=== PATIENT | female | born 2000 | race Caucasian/White ===

== ENCOUNTER 2022-08-30 13:32 | Emergency (ER) | payer OTHER, SELFPAY ==
[2022-08-30 13:49] VITALS: BP 124/86; PULSE 75; O2SAT 98
[2022-08-30 14:56] VITALS: BP 125/83; PULSE 62; RESP 18; TEMP 36.6; O2SAT 99; BMI 36.8
--- NOTE | 2022-08-30 14:57 | ED_ITS ---
HPI - Psych General Chief Complaint: Psychiatric Symptoms <Debbie Jurado MD - Last Filed: 08/30/22 15:03> Stated Complaint: Chest tightness <Debbie Jurado MD - Last Filed: 08/30/22 15:03> Time Seen by Provider: 08/30/22 15:16 <Debbie Jurado MD - Last Filed: 08/30/22 15:03> Source: patient and EMS <JOSE R Taylor - Last Filed: 08/30/22 17:51> Mode of arrival: EMS <JOSE R Taylor - Last Filed: 08/30/22 17:51> Limitations: no limitations <JOSE R Taylor - Last Filed: 08/30/22 17:51> History of Present Illness HPI Narrative: Patient is a 21 year old female with a PMHx of polycystic ovarian syndrome, anxiety and depression presents to the emergency department today with complains of chest tightness ongoing since last night. Patient states that she was recently diagnosed with Influenza and has been out of work for a week now due to fatigue, nasal congestion and cough. Patient reports that she has been more anxious than usual and had a panic attack a day ago. Patient reports seeing a therapist twice weekly for her anxiety and depression which has been helpful.Patient reports smoking marijuana frequently and her last marijuana use was a week ago, prior to onset of her flu like symptoms. ? Patient denies any antidepressant or antipsychotic medication use. Patient states that she has had suicidal ideations but has no plans of harming herself. She states that she is on metformin for her PCOS. Patient denies any previous hospitalizations, zapien llucinations, racing thoughts, alcohol use and feelings of worthlesness.? Patient denies any other complaints or concerns at this time. <JOSE R Taylor - Last Filed: 08/30/22 17:51> MD complaint: suicidal ideation, feels depressed and anxiety <JOSE R Taylor - Last Filed: 08/30/22 17:51> Onset (ago): day(s) <JOSE R Taylor - Last Filed: 08/30/22 17:51> Duration: intermittent <JOSE R Taylor - Last Filed: 08/30/22 17:51> History of same: Yes <JOSE R Taylor - Last Filed: 08/30/22 17:51> Relieving factors: therapy <JOSE R Taylor - Last Filed: 08/30/22 17:51> Exacerbating factors: none <JOSE R Taylor - Last Filed: 08/30/22 17:51> Associated symptoms: denies other symptoms <JOSE R Taylor - Last Filed: 08/30/22 17:51> Treatments prior to arrival: none <JOSE R Taylor - Last Filed: 08/30/22 17:51> Related Data Allergies/Adverse Reactions: Allergies Allergy/AdvReac Type Severity Reaction Status Date / Time No Known Allergies Allergy Verified 08/30/22 15:00 <Debbie Jurado MD - Last Filed: 08/30/22 15:03> Review of Systems Review of Systems: Constitutional : No Fever, No Chills ENT/Mouth : No Ear Pain, No Nasal Congestion, No sore throat Eyes: No Eye Pain, No Swelling, No Redness Cardiovascular : No Chest Pain, No SOB Respiratory : No Cough, No Sputum, No Dyspnea Gastrointestinal : No ingestions, No Nausea, No Vomiting, No Diarrhea, No Hematochezia, No Melena Genitourinary : No Dysuria, No Urinary Frequency, No Hematuria Musculoskeletal : No Myalgias Skin : No Skin Lesions, No rash Neuro : No Weakness, No Numbness, No Paresthesias, No Dizziness, No Headache Psych : + Anxiety, + Depression, + SI, No thoughts of self injury, No HI, No AVH, Heme/Lymph: No Lymphadenopathy Endocrine : No Polyuria, No Polydipsia <JOSE R Taylor - Last Filed: 08/30/22 17:51> Yes all other systems are reviewed and are negative <JOSE R Taylor - Last Filed: 08/30/22 17:51> PMFSH Past Medical History Attestation statement: The following information was validated with the patient. <JOSE R Taylor - Last Filed: 08/30/22 17:51> Source: old records reviewed and nursing notes reviewed <JOSE R Taylor - Last Filed: 08/30/22 17:51> Social History Social History: Social History Advance Directives: No Advance Directives Information Provided: No <Debbie Jurado MD - Last Filed: 08/30/22 15:03> Physical Exam Vital Signs: Vital Signs: Last Vital Signs Temp 97.8 F 08/30/22 14:56 Pulse 62 08/30/22 14:56 Resp 18 08/30/22 14:56 BP 125/83 08/30/22 14:56 Pulse Ox 99 08/30/22 14:56 O2 Del Method 08/30/22 14:56 BMI result Body Mass Index 36.8 <Debbie Jurado MD - Last Filed: 08/30/22 15:03> Vital Signs: Last Vital Signs Temp 97.8 F 08/30/22 14:56 Pulse 62 08/30/22 14:56 Resp 18 08/30/22 14:56 BP 125/83 08/30/22 14:56 Pulse Ox 99 08/30/22 14:56 O2 Del Method 08/30/22 14:56 BMI result Body Mass Index 36.8 vital signs have been reviewed as normal and appeared to be correct. Blood pressure normal. Heart rate normal. Respiration rate normal. Temperature normal. Oxygen saturation normal. <JOSE R Taylor - Last Filed: 08/30/22 17:51> Appearance: Alert. Oriented X3. No acute distress. Head: Normal external exam. Normocephalic. Atraumatic. No Reyes signs noted. No raccoon eyes noted Eyes: PERRLA. EOMI. Conjunctiva and sclera normal. Eyelids normal. ENT: EAC normal. TM's Normal. Pharynx normal. Uvula midline. Moist mucous membranes. No trismus noted. No drooling noted. No muffled voice noted. Neck: Normal inspection. Neck supple. FROM. No adenopathy. Thyroid Normal. No meningeal signs. No neck mass noted. CVS: Normal heart rate and rhythm. Heart sound normal. No murmurs noted. Pulses normal throughout. Respiratory: No respiratory distress. Painless inspiration. Breath sounds normal. No wheezes/rales/rhonchi noted. Chest nontender. No accessory muscle usage noted or decreased air movement noted. Abdomen: Soft and nontender. Bowel sounds normal in all 4 quadrants. No distention noted. No organomegaly noted. No visible injury noted. Back: No CVA tenderness. Full range of motion noted. Skin: Skin warm and dry. Normal skin color. Normal skin turgor. No rashes/lesions/lacerations noted. Extremities: No lower extremity edema. Extremities exhibit normal range of motion. Extremities nontender. Neuro: Oriented X 3. No motor deficit. No sensory deficit. Reflexes normal. CN's II-XII intact bilaterally? Psych: Appearance grossly normal, well-kept, mental status normal, speech and movement normal, speech clear, patient appears very sad and anxious along with depressed. Is cooperative. Normal thought process. Normal thought content. Normal good insight. Judgment good. <JOSE R Taylor - Last Filed: 08/30/22 17:51> Course Course Course Narrative: 21F recent diagnosis of Influenza A now presenting with panic attack, SI, not on medication and denies precipitating event that contributed to psychiatric events. Sees therapist at school. VS Reviewed GEN: NAD HEENT: NC/AT. EOMI/PERRLA, Ears wnl, throat wnl PULM: CTAB CVS: RRR, no murmurs ABD: NT/ND EXT: warm, pink, dry PSYCH: depressed affect Labs, SARS, Tox screen, BHN consult <Debbie Jurado MD - Last Filed: 08/30/22 15:03> Reevaluation(s) Reevaluation #1: Patient is a 21 year old female with a PMH of polycystic ovarian syndrome, anxiety and depression presents to the emergency department today with complains of chest tightness ongoing since last night. Patient also reports that she has been more anxious than usual and had a panic attack a day ago. Patient states that she has had suicidal ideations but has no plans of harming herself. Patient denies any previous hospitalizations, hallucinations, racing thoughts, alcohol use and feelings of worthlessness.? On physical exam patient was crying but very calm and co operative. Patient appeared sad and anxious. She was well-kept, mental status normal, speech and movement normal, speech clear.? Fair judgment and insight. The rest of physical exam revealed no abnormalities. Plan:? Labs, UA, urine , provide at 175 mg of Tylenol and crisis con sult re-evaluate. <JOSE R Taylor - Last Filed: 08/30/22 17:51> Time: 16:00 <JOSE R Taylor - Last Filed: 08/30/22 17:51> Reevaluation #2: Labs obtained and reviewed - all labs are within normal limits.? Patient negative for . Therefore at this time patient is placed in Physician observation because the patient needs more time to be evaluated by crisis.? Will continue to monitor. <JOSE R Taylor - Last Filed: 08/30/22 17:51> Time: 16:41 <JOSE R Taylor - Last Filed: 08/30/22 17:51> Reevaluation #3: - patient is reporting that she would like to just go home. Reports she is feeling better. She denies any thoughts of SI. She does not have any plan in place. She initially came here for chest tightness and then when she was in the waiting room she started feeling anxious and said that she would kill herself that is why she was brought into the ED therefore at this time patient will be discharged home. <JOSE R Taylor - Last Filed: 08/30/22 17:51> Time: 17:49 <JOSE R Taylor - Last Filed: 08/30/22 17:51> Medications Administered Generic Name Dose Route Start Last Admin Trade Name Freq PRN Reason Stop Dose Admin Lorazepam 1 mg 08/30/22 16:52 08/30/22 17:16 Lorazepam 1 Mg Tablet PO 1 mg Q6H PRN Administration anxiety Discontinued Medications Generic Name Dose Route Start Last Admin Trade Name Freq PRN Reason Stop Dose Admin Acetaminophen 975 mg 08/30/22 13:48 08/30/22 16:51 Acetaminophen 325 Mg Tablet PO 08/30/22 13:49 Not Given ONCE ONE <Debbie Jurado MD - Last Filed: 08/30/22 15:03> Medications Administered Generic Name Dose Route Start Last Admin Trade Name Freq PRN Reason Stop Dose Admin Lorazepam 1 mg 08/30/22 16:52 08/30/22 17:16 Lorazepam 1 Mg Tablet PO 1 mg Q6H PRN Administration anxiety Discontinued Medications Generic Name Dose Route Start Last Admin Trade Name Freq PRN Reason Stop Dose Admin Acetaminophen 975 mg 08/30/22 13:48 08/30/22 16:51 Acetaminophen 325 Mg Tablet PO 08/30/22 13:49 Not Given ONCE ONE <JOSE R Taylor - Last Filed: 08/30/22 17:51> Discharge Plan Discharge Clinical Impression: Influenza A, Depression, Acute anxiety <Debbie Jurado MD - Last Filed: 08/30/22 15:03> Patient Disposition: Home, Self-Care <Debbie Jurado MD - Last Filed: 08/30/22 15:03> Instructions: Anxiety (ED), Influenza (ED) <Debbie Jurado MD - Last Filed: 08/30/22 15:03> Referrals: Physician,None [Primary Care Provider] - (your pcp) <Debbie Jurado MD - Last Filed: 08/30/22 15:03> Interventions: [place]-Suicide Risk Severity Scale Last Done: 08/30/22 17:22 <Debbie Jurado MD - Last Filed: 08/30/22 15:03>
[2022-08-30 15:42] LABS: MANUAL DIFF FLAG NO
[2022-08-30 15:47] LABS: Basophils Percent Auto 0.2 % (0-2); Eosinophils Percent Auto 0.6 % (0-4); Hematocrit 40.8 % (37.0-47.0); Imm Gran Abs Auto 0.01 X10*3/uL (0.00-0.03); Imm Gran Pct Auto 0.2 % (0.0-0.4); Lymphocytes Absolute Auto 1.8 X10*3/uL (1.2-4.9); Lymphocytes Percent Auto 34.1 % (20-40); Mean Corpuscular HGB Conc 34.3 g/dl (31.0-35.0); Mean Corpuscular Hemoglobin 29.6 pg (27.0-33.0); Mean Corpuscular Volume 86.3 fL (80.0-98.0); Mean Platelet Volume 10.5 fL (9.4-12.3); Monocytes Absolute Auto 0.4 X10*3/uL (0.1-1.2); Monocytes Percent Auto 8.2 % (2-11); Neutrophils Percent Auto 56.7 % (45-73); Platelet Count 287 X10*3/uL (160-400); Red Blood Count 4.73 X10*6/uL (4.20-5.50); White Blood Count 5.3 X10*3/uL (4.8-10.8)
--- NOTE | 2022-08-30 15:55 | ED.PSYCH ---
HPI - Psych General Chief Complaint: Psychiatric Symptoms Stated Complaint: Chest tightness Time Seen by Provider: 08/30/22 15:16 Source: patient Mode of arrival: ambulatory Limitations: no limitations History of Present Illness HPI Narrative: Patient is a 21 year old female with a PMH of polycystic ovarian syndrome, anxiety and depression presents to the emergency department today with complains of chest tightness ongoing since last night. Patient states that she was recently diagnosed with Influenza and has been out of work for a week now due to fatigue, nasal congestion and cough. Patient reports that she has been more anxious than usual and had a panic attack a day ago. Patient reports seeing a therapist twice weekly for her anxiety and depression which has been helpful.Patient reports smoking marijuana frequently and her last marijuana use was a week ago, prior to onset of her flu like symptoms. Patient denies any antidepressant or antipsychotic medication use. Patient states that she has had suicidal ideations but has no plans of harming herself. She states that she is on metformin for her PCOS. Patient denies any previous hospitalizations, hallucinations, racing thoughts, alcohol use and feelings of worthlesness. Patient denies any other complaints or concerns at this time. MD complaint: suicidal ideation, feels depressed and anxiety Onset (ago): day(s) (panic attack a day ago) Duration: intermittent History of same: Yes Relieving factors: therapy Exacerbating factors: none Associated psychiatric symptoms: depression and suicidal ideation Associated symptoms: denies other symptoms Treatments prior to arrival: none Related Data Allergies Allergy/AdvReac Type Severity Reaction Status Date / Time No Known Allergies Allergy Verified 08/30/22 15:00 Review of Systems Review of Systems: Constitutional : No Fever, No Chills ENT/Mouth : No Ear Pain, No Nasal Congestion, No sore throat Eyes: No Eye Pain, No Swelling, No Redness Cardiovascular : No Chest Pain, No SOB Respiratory : No Cough, No Sputum, No Dyspnea Gastrointestinal : No ingestions, No Nausea, No Vomiting, No Diarrhea, No Hematochezia, No Melena Genitourinary : No Dysuria, No Urinary Frequency, No Hematuria Musculoskeletal : No Myalgias Skin : No Skin Lesions, No rash Neuro : No Weakness, No Numbness, No Paresthesias, No Dizziness, No Headache Psych : + Anxiety, + Depression, + SI, No thoughts of self injury, No HI, No AVH, Heme/Lymph: No Lymphadenopathy Endocrine : No Polyuria, No Polydipsia Yes all other systems are reviewed and are negative [facility] Social History Social History Advance Directives: No Advance Directives Information Provided: No Physical Exam Vital Signs: Vital Signs: Last Vital Signs Temp 97.8 F 08/30/22 14:56 Pulse 62 08/30/22 14:56 Resp 18 08/30/22 14:56 BP 125/83 08/30/22 14:56 Pulse Ox 99 08/30/22 14:56 O2 Del Method 08/30/22 14:56 BMI result Body Mass Index 36.8 vital signs have been reviewed as normal and appeared to be correct. Blood pressure normal. Heart rate normal. Respiration rate normal. Temperature normal. Oxygen saturation normal. Appearance: Alert. Oriented X3. No acute distress. Head: Normal external exam. Normocephalic. Atraumatic. Eyes: PERRLA. EOMI. Conjunctiva and sclera normal. Eyelids normal. ENT: EAC normal. TM's Normal. Pharynx normal. Uvula midline. Moist mucous membranes. No trismus noted. No drooling noted. No muffled voice noted. Neck: Normal inspection. Neck supple. FROM. Thyroid Normal. No meningeal signs. No neck mass noted. CVS: Normal heart rate and rhythm. Heart sound normal. No murmurs noted. Respiratory: No respiratory distress. Painless inspiration. Breath sounds normal. No wheezes/rales/rhonchi noted. Chest nontender. No accessory muscle usage noted or decreased air movement noted. Abdomen: Soft and nontender. Bowel sounds normal in all 4 quadrants. No distention noted. No organomegaly noted. No visible injury noted. Back: Full range of motion noted. Skin: Skin warm and dry. Normal skin color. Normal skin turgor. No rashes/lesions/lacerations noted. Extremities: No lower extremity edema. Extremities exhibit normal range of motion. Extremities nontender. Neuro: Oriented X 3. No motor deficit. No sensory deficit. Psych: Patient appears sad and anxious, crying during the exambut is calm and co operative. . Patient is well-kept, mental status normal, speech and movement normal, speech clear. Fair judgment and insight. Psych: Appearance: grossly normal and well kempt Mental Status: mental status grossly normal Speech and movement: Normal speech and movement present and Clear speech present Affect: Sad affect present Attitude: cooperative Thought process: Normal thought process present Thought content: Suicidality present Insight: Fair insight present (Psych) Judgement: Fair judgement present (Psych) Course Course Course Narrative: 16pm - Patient is a 21 year old female with a PMH of polycystic ovarian syndrome, anxiety and depression presents to the emergency department today with complains of chest tightness ongoing since last night. Patient also reports that she has been more anxious than usual and had a panic attack a day ago. Patient states that she has had suicidal ideations but has no plans of harming herself. Patient denies any previous hospitalizations, hallucinations, racing thoughts, alcohol use and feelings of worthlessness. On physical exam patient was crying but very calm and co operative. Patient appeared sad and anxious. She was well-kept, mental status normal, speech and movement normal, speech clear. Fair judgment and insight. The rest of physical exam revealed no abnormalities. Plan: Labs, UA, urine , provide at 175 mg of Tylenol and crisis consult re-evaluate. Reevaluation(s) Reevaluation #1: Labs obtained and reviewed - all labs are within normal limits. Patient negative for . Therefore at this time patient is placed in Physician observation because the patient needs more time to be evaluated by crisis. Will continue to monitor. Time: 16:34 Discharge Plan Discharge Clinical Impression: Suicidal ideation, Influenza A
[2022-08-30 16:07] LABS: Alanine Aminotransferase 24 U/L (0-31); Albumin Level 4.4 g/dL (3.5-5.0); Alkaline Phosphatase 52 U/L (39-117); Anion Gap 15 (12-20); Aspartate Amino Transferase 21 U/L (5-31); Bilirubin Total 0.4 mg/dL (0.0-1.0); Blood Urea Nitrogen 11 mg/dL (9-16); Calcium 9.1 mg/dL (8.4-10.2); Carbon Dioxide 24 mmol/L (22-29); Chloride 108 mmol/L (96-108); Creatinine Clr Calc Pharmacy 143.3; Estimated Glomerular Filt Rate > 60; Glucose Random 110 mg/dL (60-115); Potassium 3.8 mmol/L (3.3-5.1); Sodium 143 mmol/L (135-145); Total Protein 7.3 g/dL (6.5-8.0)
[2022-08-30 16:27] LABS: UPreg QC Valid YES; Urine Pregnancy NEGATIVE (NEGATIVE)
[2022-08-30] MEDS: LORazepam 1 MG TABLET PO (17:16)
--- NOTE | 2022-08-30 17:54 | MHC.CARE ---
Care Team met with pt in ED 22 H. PT reported grievances and declines to meet with this content writer. Care Team communicated with Cecilia ODELL.
[2022-08-30 18:44] LABS: Influenza A PCR POSITIVE (Negative); Influenza B PCR NEGATIVE (Negative); Resp Syncy Virus RNA Qual PCR NEGATIVE (Negative); SARS COV2 PCR INHOUSE NEGATIVE (Negative)
== END 2022-08-30 18:17 | disposition home or self-care (01) ==
PROVIDERS: Student in an Organized Health Care Education/Training Program; Emergency Provider Emergency Medicine
DX: J11.1 Influenza due to unidentified influenza virus with other respiratory manifestations (principal); F41.9 Anxiety disorder, unspecified; F32.A Depression, unspecified
CPT/HCPCS: 0241U; 36415; 80053; 81025; 85025; 99284

== ENCOUNTER 2023-04-22 12:28 | Emergency (ER) | payer BC, SELFPAY ==
--- NOTE | ~2023-04-22 | XR_ITS ---
EXAMINATION: XR CHEST CLINICAL INFORMATION: Cough and fever COMPARISON: None available. TECHNIQUE: 2 views of the chest were obtained. FINDINGS: No significant abnormality is noted involving the heart, lungs, mediastinum, bony thorax or soft tissues. XR/XR chest 2V IMPRESSION: Unremarkable examination.
--- NOTE | 2023-04-22 12:44 | ED_ITS ---
HPI - General Adult General Chief complaint: Upper Respiratory Symptoms Stated complaint: Vomiting X 3 Days Time Seen by Provider: 04/22/23 12:50 Source: patient Mode of arrival: ambulatory Limitations: no limitations History of Present Illness HPI narrative: Patient is a 22 year old assigned female at with no reported medical history presenting to the emergency department today with a cough. Patient states that over the last 3 days she has had a cough that is not getting better. Patient denies any dizziness, lightheadedness, abdominal pain, nausea, vomiting, fever, chills, blurry vision, double vision, loss of vision, chest pain, difficulty breathing, shortness of breath, back pain, night sweats, pain with urination, increased urinary frequency, increased urinary urgency, blood in her urine or stool, syncope or a near syncopal episode, recent trauma or falls, bowel incontinence, bladder incontinence, bowel retention, bladder retention, or any other complaints at this time. Onset (ago): day(s) (3) Severity: mild Severity scale (1-10): 3 Relieving factors: none Exacerbating factors: none Associated symptoms: cough Treatments prior to arrival: none Related Data Previous Rx's Medication Instructions Recorded benzonatate 100 mg capsule 100 mg PO BID PRN cough 7 days #14 04/22/23 caps Allergies Allergy/AdvReac Type Severity Reaction Status Date / Time No Known Allergies Allergy Verified 08/30/22 15:00 Review of Systems Constitutional: Constitutional: Reports no additional constitutional complaints, Denies chills, Denies fever(s) and Denies night sweats Eyes: Eyes: Reports no additional eye complaints, Denies blurry vision, Denies change in vision, Denies diplopia, Denies eye discharge, Denies loss of vision and Denies eye pain ENT: Denies dizziness Cardiovascular: Cardiovascular: Reports no additional cardiovascular complaints, Denies chest pain, Denies lightheadedness, Denies Loss of Consciousness and Denies dyspnea Respiratory: Respiratory: Reports no additional respiratory complaints, Reports cough and Denies dyspnea Gastrointestinal: Gastrointestinal: Reports no additional gastrointestinal complaints, Denies abdominal pain, Denies melena, Denies hematochezia, Denies change in bowel habits and Denies change in stool character Genitourinary: Genitourinary: Denies hematuria, Denies urinary frequency, D enies dysuria, Denies urinary incontinence, Denies urinary hesitancy and Denies urinary urgency Musculoskeletal: Musculoskeletal: Reports no additional musculoskeletal complaints, Denies numbness and Denies tingling Neurologic: Denies dizziness, Denies loss of vision, Denies numbness and Denies tingling Psychiatric: Psychiatric: Reports no additional psychiatric complaints Endocrine: Endocrine: Reports no additional endocrine complaints Hematologic/Lymphatic: Hematologic/Lymphatic: Reports no additional hematologic/lymphatic complaints Allergic/Immunologic: Allergic/Immunologic: Reports no additional allergic/immunologic complaints PMFSH Past Medical History Attestation statement: The following information was validated with the patient. Source: old records reviewed and nursing notes reviewed Social History Social History Advance Directives: No Advance Directives Information Provided: No Physical Exam ED Vital Signs: Vital Signs - 24 hr 04/22/23 12:45 Temperature 97.6 F Pulse Rate 75 Respiratory Rate 18 Blood Pressure 132/80 Pulse Oximetry 97 Oxygen Delivery Method Room Air BMI result Body Mass Index 36.0 Const General: cooperative, no acute distress, alert and awake Nutritional Appearance: well nourished Orientation/consciousness: patient oriented x3 Limitations: no limitations HENMT Head: Yes normal to inspection and Yes atraumatic Ears: hearing grossly normal bilaterally and external ears normal General nose exam: Normal external nose present, no nasal discharge noted and no epistaxis Face and sinus: Yes normal facial exam, No abrasion and No laceration Mouth: Normal oral and palatal mucosa present, no drooling and no muffled voice Eyes General: appearance normal, both eyes and all related structures Periorbital: periorbital findings normal Eyelids: Yes eyelids normal Conjunctivae: conjunctivae normal Pupils: Equal, round and reactive pupils present EOM: EOMs intact bilaterally Neck Neck: Yes normal visual inspection, Yes full ROM and Yes no lymphadenopathy Chest Chest palpation & inspection: normal inspection of the chest Resp Effort & Inspection: normal respiratory effort and able to speak in complete sentences Auscultation: clear to auscultation bilaterally Cardio Rate: regular rate Rhythm: regular rhythm GI Inspection: Yes normal to inspection Neuro General: patient oriented x3 and moves all extremities Cranial nerves: Yes Equal, round and reactive pupils present Cognition (Neuro): normal cognition Motor exam (neuro): 5/5 motor strength present throughout Sensory Exam: Normal double simultaneous stimulation for sensation Coordination: [id number] test normal Extrem General: Yes normal to inspection, Yes full ROM and Yes capillary refill normal Psych Appearance: grossly normal Mental Status: mental status grossly normal Affect: normal affect Attitude: cooperative Thought process: Normal thought process present Thought content: Normal thought content present Insight: Good insight present (Psych) Course Course Course Narrative: This is a rapid medical exam: Additional HPI, ROS, PE not included below will be deferred to primary provider. Patient is a 22-year-old female with history of PCOS presenting to the emergency department with complaint of cough for 3 days, reports coughing episodes so severe they are causing her to vomit. Reports fever last night. Plan: flu, covid, cxr Medical Decision Making Medical Decision Making [facility] Narrative: Patient is a 22 year old assigned female at with no reported medical history presenting to the emergency department today with a cough. Patient's physical exam was unremarkable. Patient's COVID-19 and influenza tests were negative. Patient's chest x-ray showed no acute process. I explained my physical exam findings as well as all test results to the patient. I answered all questions asked by the patient. I stressed the importance of the patient taking her medication as prescribed. I stressed the importance of the patient following up with her primary care provider. I stressed the importance of the patient returning to the emergency department immediately if her symptoms were to worsen or if she were to develop any dizziness, shortness of breath, difficulty breathing, chest pain, blurry vision, loss of vision, nausea, vomiting, abdominal pain, fever, chills, back pain, or any other complaints. Patient verbalized agreement and understanding with this treatment plan and discharge. Differential Diagnosis Differential Diagnoses: The differential diagnosis associated with the presentation includes Cough Viral illness URI Influenza Pneumonia COVID-19 Admission/Observation Consideration of admission/observation: Escalation of care including admission /observation considered Patient would have been admitted to the hospital had her work up had any findings where hospital admission was appropriate and her clinical presentation warranted hospital admission. Lab Data [facility] Lab Attestation statement: I reviewed the patient's lab results. My interpretation of these studies and their corresponding values is that they are grossly normal. Labs: Lab Results 04/22/23 04/22/23 Range/Units 13:22 13:22 COVID-19 (CRISTOFER) Negative (Negative) COVID-19 Clin Com See Note Influenza Type A (BETINA) Negative (Negative) Influenza Type B (BETINA) Negative (Negative) Influenza A & B Note See Note Independent Interpretation I performed an independent interpretation of an: Plain X-Ray Interpretation: My interpretation is in agreement with the radiologist's impression of this imaging study. EXAMINATION: XR CHEST CLINICAL INFORMATION: Cough and fever COMPARISON: None available. TECHNIQUE: 2 views of the chest were obtained. FINDINGS: No significant abnormality is noted involving the heart, lungs, mediastinum, bony thorax or soft tissues. XR/XR chest 2V IMPRESSION: Unremarkable examination. Dictated By: Debbie Ortega MD Signed By: Electronically signed by Debbie Ortega MD 04/22/23 3226 Radiology Impression Discussion of test interpretation with radiology: I have reviewed the radiologist's reading. Prescription Management I considered prescription management with: Other (patient prescribed a cough suppressant) Discharge Plan Discharge Clinical Impression: Upper respiratory infection Patient Disposition: Home, Self-Care Instructions: Viral Syndrome (ED) Additional Instructions: Follow up with your primary care provider. Return to the emergency department immediately if your symptoms worsen or if you develop any dizziness, shortness of breath, difficulty breathing, chest pain, blurry vision, loss of vision, nausea, vomiting, abdominal pain, fever, chills, back pain, or any other complaints. Prescriptions: New benzonatate 100 mg capsule 100 mg PO BID PRN (Reason: cough) 7 Days Qty: 14 0RF Referrals: [facility] [place] [facility] [place]] (Call to establish and follow up with a primary care provider. If you already have a primary care provider, please follow up with them.) [facility] [place] [facility] [[facility]] (Call to establish and follow up with a primary care provider. If you already have a primary care provider, please follow up with them.) [facility] [place] [facility] [[facility]] (Call to establish and follow up with a primary care provider. If you already have a primary care provider, please follow up with them.) Stand Alone Forms: Work/School Release Interventions: ED Discharge Assessment Last Done: 04/22/23 14:32 Discharge Date/Time: 04/22/23 14:32 Print Language: Turkmen
[2023-04-22 12:45] VITALS: BP 132/80; PULSE 75; RESP 18; TEMP 36.4; O2SAT 97; BMI 36.0
[2023-04-22 13:53] LABS: IDNOW Serial# BCCEAD1C; Influenza A Negative (Negative); Influenza B2 Negative (Negative)
[2023-04-22 14:05] LABS: COVID-19 Test Negative (Negative); IDNOW Serial# 08D9AD1C
== END 2023-04-22 14:32 | disposition home or self-care (01) ==
PROVIDERS: Registered Nurse Emergency; Emergency Provider Emergency Medicine Emergency Medical Services
DX: J06.9 Acute upper respiratory infection, unspecified (principal); Z20.822 Contact with and (suspected) exposure to COVID-19; Z20.828 Contact with and (suspected) exposure to other viral communicable diseases
CPT/HCPCS: 71046; 87502; 87635; 99282; 99283

== ENCOUNTER 2023-05-18 08:46 | Emergency (ER) | payer BC, SELFPAY ==
--- NOTE | ~2023-05-18 | US_ITS ---
EXAMINATION: US PELVIS CLINICAL INFORMATION: Lower abdominal pain. COMPARISON: None available. TECHNIQUE: Ultrasound of the pelvis is performed using both transabdominal and transvaginal transducers along with Doppler. Transvaginal imaging is performed due to inadequate visualization transabdominally. FINDINGS: Uterus: The uterus is anteverted and measures 7.6 x 4.0 x 5.9 cm. No myometrial abnormality. The double wall endometrial thickness is 1.4 cm. A tiny hypoechoic focus near the fundus measures 0.2 x 0.2 x 0.2 cm. Color Doppler showed no abnormal vascular flow. The cervix is closed and measures approximately 3.0 cm. Adnexa: Both ovaries are visualized. There is normal color flow to the adnexa. There is no ovarian torsion. There is no pelvic ascites or fluid collection. Right ovary measures 3.5 x 1.6 x 1.8 cm. 5.3 mL volume. Left ovary measures 3.3 x 1.7 x 1.8 cm. 5.5 mL volume US/US pelvic ovarian doppler IMPRESSION: 1. Mild thickening of the endometrium with tiny 0.2 cm hypoechoic focus near the fundus. This is nonspecific. The appearance is benign. Intrauterine gestation cannot be completely excluded. Monitoring of beta-hCG levels and short-term imaging follow-up is recommended as clinically indicated. No other significant abnormality.
--- NOTE | ~2023-05-18 | US_ITS ---
EXAMINATION: US PELVIS CLINICAL INFORMATION: Lower abdominal pain. COMPARISON: None available. TECHNIQUE: Ultrasound of the pelvis is performed using both transabdominal and transvaginal transducers along with Doppler. Transvaginal imaging is performed due to inadequate visualization transabdominally. FINDINGS: Uterus: The uterus is anteverted and measures 7.6 x 4.0 x 5.9 cm. No myometrial abnormality. The double wall endometrial thickness is 1.4 cm. A tiny hypoechoic focus near the fundus measures 0.2 x 0.2 x 0.2 cm. Color Doppler showed no abnormal vascular flow. The cervix is closed and measures approximately 3.0 cm. Adnexa: Both ovaries are visualized. There is normal color flow to the adnexa. There is no ovarian torsion. There is no pelvic ascites or fluid collection. Right ovary measures 3.5 x 1.6 x 1.8 cm. 5.3 mL volume. Left ovary measures 3.3 x 1.7 x 1.8 cm. 5.5 mL volume US/US pelvic and transvaginal IMPRESSION: 1. Mild thickening of the endometrium with tiny 0.2 cm hypoechoic focus near the fundus. This is nonspecific. The appearance is benign. Intrauterine gestation cannot be completely excluded. Monitoring of beta-hCG levels and short-term imaging follow-up is recommended as clinically indicated. No other significant abnormality.
[2023-05-18 08:48] VITALS: BP 120/76; PULSE 93; RESP 17; TEMP 36.6; O2SAT 98; BMI 35.9
--- NOTE | 2023-05-18 09:53 | ED.ABDPAIN ---
HPI - Abdominal Pain General Chief Complaint: Abdominal Pain Stated Complaint: abdominal pain Time Seen by Provider: 05/18/23 09:39 Source: patient Mode of arrival: ambulatory Limitations: no limitations History of Present Illness HPI narrative: Patient is a 22 year old female with a history of PCOS presenting with abdominal pain/ cramping that started yesterday. She explains that this abdominal pain started suddenly yesterday morning and has continued since then. She vomited once yesterday morning but has not vomited since, just feels nauseous. She describes the pain as sharp and cramping across her lower abdomen and rates the pain an 8/10 at times other times shes pain free. She states pain is the same bilaterally. Last bowel movement was yesterday. Last menstrual period was one month ago on the , patient denies risk of but sexually active and not on birthcontrol. Denies headache, dizziness, chest pain, shortness of breath, nausea, vomiting, changes in bowel or bladder habits, fevers,chills. Patient denies sick contacts. Denies STD exposure or concerns Related Data Previous Rx's Medication Instructions Recorded benzonatate 100 mg capsule 100 mg PO BID PRN cough 7 days #14 04/22/23 caps acetaminophen 325 mg capsule 325 mg PO QID PRN pain #30 caps 05/18/23 (Tylenol) cephalexin 500 mg tablet 500 mg PO Q6H 7 days #28 tabs 05/18/23 vit no.95-ferrous 1 tab PO DAILY #30 tabs 05/18/23 fumarate 28 mg-folic acid 800 mcg tablet () pyridoxine (vitamin B6) 25 mg 25 mg PO BID nausea #14 tabs 05/18/23 tablet Allergies Allergy/AdvReac Type Severity Reaction Status Date / Time No Known Allergies Allergy Verified 05/18/23 08:48 Review of Systems Review of Systems Constitutional : No Weight loss, No Fever, No Chills, No Fatigue, No Malaise ENT/Mouth : No sore throat, No Rhinorrhea Eyes: No Eye Pain, No Swelling, No Redness Cardiovascular : No Chest Pain, No SOB, No Dyspnea on Exertion, No Orthopnea, No Edema, No Palpitations Respiratory : No Cough, No Sputum, No Wheezing Gastrointestinal : +cramping abdominal pain in the lower abdomen bilaterally, Nausea, No Vomiting today, No Diarrhea, No Constipation, No Hematochezia, No Melena Genitourinary : No Dysuria, No Urinary Frequency, No Hematuria, Musculoskeletal : No joint pain, No Myalgias, No Joint Swelling Skin : No Skin Lesions, No rash Neuro : No Weakness, No Numbness, No Dizziness, No Headache Psych : No Anxiety/Panic, No Depression All other systems reviewed and are negative Yes all other systems are reviewed and are negative [facility] Past Medical History Attestation statement: The following information was validated with the patient. Source: old records reviewed and nursing notes reviewed Social History Social History Alcohol intake: never Smoked in Last 30 Days: Yes Use of substances other than those prescribed or required for medical reasons: No Advance Directives: No Advance Directives Information Provided: Yes Patient : No Physical Exam ED Vital Signs: Vital Signs - 24 hr 05/18/23 08:48 05/18/23 11:19 Temperature 98 F 98.3 F Pulse Rate 93 86 Respiratory Rate 17 18 Blood Pressure 120/76 118/87 Pulse Oximetry 98 98 Oxygen Delivery Method Room Air Room Air BMI result Body Mass Index 35.9 VSS Appearance: Alert.? Oriented X3.? No acute distress.? Head: Normocephalic, atraumatic, no step-offs or deformities Eyes: Pupils equal, round and reactive to light.? CVS: Normal heart rate and rhythm.? Pulses normal.? Respiratory: No respiratory distress.? Breath sounds normal.? Abdomen: Soft, mildly tender to palpation across the lower quadrants. No rebound tenderness. Negative [place], [place], [place]. Non-distended, not an acute abdomen. Skin: Skin warm and dry.? Normal skin color.? Normal skin turgor.? Extremities: No lower extremity edema.? No calf ttp. 5/5 strength to bilateral upper and lower extremities Back: No midline tenderness, no C-spine tenderness, full range of motion, no CVA tenderness bilaterally Neuro: Oriented X 3.? No motor deficit.? No sensory deficit. CN 2-12 intact Course Reevaluation(s) Reevaluation #1: CBC and CMP are unremarkable. Urine significant for 4+ bacteria, red blood cells and white blood cells consistent with a urinary tract infection. Urine weakly positive consistent with an early , beta hcg was completed to confirm and was 32 consistent with a of about 4 weeks. Her ultrasound with mild thickening of the endometrium with tiny 0.2 cm hypoechoic focus near the fundus, nonspecific it could be intrauterine gestation. Monitoring beta hCG was recommended, explained her she should have hCG repeated in 24-48 hours, recommend repeat imaging. Patient will be sent home with vitamins, OBGYN follow-up. Upon reexamination patient no longer having tenderness to palpation, again this reports that unlikely that this is appendicitis I did explain to her that because she is CT is not recommended, if symptoms change in terms of quality or quantity she should return for further evaluation. Pain likely secondary to cramping and . No signs of acute abdomen. Patient well appearing. She verbalizes understanding. Educated patient on diagnosis and treatment plan, answered all question, patient verbalizes understanding. At this time patient will be discharged home, advised to return with new or worsening symptoms. Educated on worrisome signs and symptoms and when to return. At this time I feel comfortable discharge home. Time: 13:05 Medical Decision Making Medical Decision Making MDM Narrative: 22 year old female presenting with 8/10 abdominal pain starting yesterday w/ a/c nausea Exam significant for mild abdominal tenderness to the lower quadrants. No rebound tenderness. This is likely a ovarian cyst rupture vs vs ovarian torsion vs viral illness Unlikely an acute abdomen, appendicitis, perforation given mild lower abdominal tenderness with no rebound tenderness. History and physical exam are not suspicious for arterial occlusion, cholecystitis, colangitis, pancreatitis, torsion, ectopic given the location and description of the pain. I do not suspect obstruction diverticulitis given no history and no changes in bowel movements. Unlikely renal calculi given no flank tenderness or changes in urination. Plan: urine, labs, imaging Differential Diagnosis Differential Diagnoses: The differential diagnosis associated with the presentation includes This is likely a ovarian cyst rupture vs vs ovarian torsion vs viral illness Unlikely an acute abdomen, appendicitis, perforation given mild lower abdominal tenderness with no rebound tenderness. History and physical exam are not suspicious for arterial occlusion, cholecystitis, colangitis, pancreatitis, torsion, ectopic given the location and description of the pain. I do not suspect obstruction diverticulitis given no history and no changes in bowel movements. Unlikely renal calculi given no flank tenderness or changes in urination. Admission/Observation Consideration of admission/observation: Escalation of care including admission/observation considered Not indicated. Lab Data MDM Lab Attestation statement: I reviewed the patient's lab results. CBC and CMP are unremarkable. Urine significant for 4+ bacteria, red blood cells and white blood cells consistent with a urinary tract infection. Urine weakly positive consistent with an early , beta hcg was completed to confirm and was 32 consistent with a of about 4 weeks. 05/18/23 10:20 05/18/23 10:20 Labs: Lab Results 05/18/23 05/18/23 05/18/23 Range/Units 10:16 10:16 10:20 WBC 7.4 (4.8-10.8) X10*3/uL RBC 4.77 (4.20-5.50) X10*6/uL Hgb 14.4 (12.0-16.0) g/dl Hct 42.9 (37.0-47.0) % MCV 89.9 (80.0-98.0) fL MCH 30.2 (27.0-33.0) pg MCHC 33.6 (31.0-35.0) g/dl RDW 13.2 (11.0-16.0) % Plt Count 295 (160-400) X10*3/uL MPV 10.2 (9.4-12.3) fL Immature Gran % (Auto) 0.3 (0.0-0.4) % Neut % (Auto) 63.4 (45-73) % Lymph % (Auto) 29.4 (20-40) % [place] % (Auto) 5.3 (2-11) % Eos % (Auto) 1.1 (0-4) % Baso % (Auto) 0.5 (0-2) % Lymph # (Auto) 2.2 (1.2-4.9) X10*3/uL [place] # (Auto) 0.4 (0.1-1.2) X10*3/uL Eos # (Auto) 0.1 (0.0-0.4) X10*3/uL Baso # (Auto) 0.0 (0.0-0.2) X10*3/uL Abs Immat Gran (auto) 0.02 (0.00-0.03) X10*3/uL Absolute Neuts (auto) 4.7 (2.0-8.3) x10*3/uL Absolute Nucleated RBC 0.000 (0.0-0.012) X10*3/uL Nucleated RBC % (auto) 0.0 (0.0-0.2) /100WBC Sodium (135-145) mmol/L Potassium (3.3-5.1) mmol/L Chloride (96-108) mmol/L Carbon Dioxide (22-29) mmol/L Anion Gap (12-20) BUN (9-16) mg/dL Creatinine (0.5-1.4) mg/dL Estim Creat Clear Calc Estimated GFR Random Glucose (60-115) mg/dL Calcium (8.4-10.2) mg/dL Magnesium (1.6-2.6) mg/dL Total Bilirubin (0.0-1.0) mg/dL AST (5-31) U/L ALT (0-31) U/L Alkaline Phosphatase (39-117) U/L Total Protein (6.5-8.0) g/dL Albumin (3.5-5.0) g/dL Lipase (8-78) U/L Beta HCG, Quant mIU/mL Urine Color Dark Yellow Urine Appearance Turbid Urine pH 6.0 (5.0-9.0) Ur Specific [place] >= 1.030 H (1.005-1.025) Urine Protein 30 (1+) H (Neg-Trace) mg/dL Urine Glucose (UA) Negative (Negative) mg/dL Urine Ketones Trace (Negative) mg/dL Urine Blood Negative (Negative) Urine Nitrite Negative (Negative) Ur Leukocyte Esterase Trace H (Negative) Urine RBC 11-20 H (0-2) /HPF Urine WBC 6-10 H (0-5) /HPF Ur Squamous Epith Cells >20 (0-2) /HPF Other Crystals Present Urine Bacteria 4+ (None Seen) Hyaline Casts 3-5 (0-2) /LPF Urine Test WEAKLY POSITIVE H (NEGATIVE) 05/18/23 Range/Units 10:20 WBC (4.8-10.8) X10*3/uL RBC (4.20-5.50) X10*6/uL Hgb (12.0-16.0) g/dl Hct (37.0-47.0) % MCV (80.0-98.0) fL MCH (27.0-33.0) pg MCHC (31.0-35.0) g/dl RDW (11.0-16.0) % Plt Count (160-400) X10*3/uL MPV (9.4-12.3) fL Immature Gran % (Auto) (0.0-0.4) % Neut % (Auto) (45-73) % Lymph % (Auto) (20-40) % [place] % (Auto) (2-11) % Eos % (Auto) (0-4) % Baso % (Auto) (0-2) % Lymph # (Auto) (1.2-4.9) X10*3/uL [place] # (Auto) (0.1-1.2) X10*3/uL Eos # (Auto) (0.0-0.4) X10*3/uL Baso # (Auto) (0.0-0.2) X10*3/uL Abs Immat Gran (auto) (0.00-0.03) X10*3/uL Absolute Neuts (auto) (2.0-8.3) x10*3/uL Absolute Nucleated RBC (0.0-0.012) X10*3/uL Nucleated RBC % (auto) (0.0-0.2) /100WBC Sodium 140 (135-145) mmol/L Potassium 3.7 (3.3-5.1) mmol/L Chloride 108 (96-108) mmol/L Carbon Dioxide 25 (22-29) mmol/L Anion Gap 11 L (12-20) BUN 11 (9-16) mg/dL Creatinine 0.74 (0.5-1.4) mg/dL Estim Creat Clear Calc 147.8 Estimated GFR > 60 Random Glucose 95 (60-115) mg/dL Calcium 9.4 (8.4-10.2) mg/dL Magnesium 2.5 (1.6-2.6) mg/dL Total Bilirubin 0.4 (0.0-1.0) mg/dL AST 17 (5-31) U/L ALT 16 (0-31) U/L Alkaline Phosphatase 61 (39-117) U/L Total Protein 7.8 (6.5-8.0) g/dL Albumin 4.6 (3.5-5.0) g/dL Lipase 22 (8-78) U/L Beta HCG, Quant 32 mIU/mL Urine Color Urine Appearance Urine pH (5.0-9.0) Ur Specific [place] (1.005-1.025) Urine Protein (Neg-Trace) mg/dL Urine Glucose (UA) (Negative) mg/dL Urine Ketones (Negative) mg/dL Urine Blood (Negative) Urine Nitrite (Negative) Ur Leukocyte Esterase (Negative) Urine RBC (0-2) /HPF Urine WBC (0-5) /HPF Ur Squamous Epith Cells (0-2) /HPF Other Crystals Urine Bacteria (None Seen) Hyaline Casts (0-2) /LPF Urine Test (NEGATIVE) Independent Interpretation I performed an independent interpretation of an: Ultrasound Radiology Impression Discussion of test interpretation with radiology: I have reviewed the radiologist's reading. Radiologist Impression: US/US pelvic ovarian doppler IMPRESSION: ? 1. Mild thickening of the endometrium with tiny 0.2 cm hypoechoic focus near the fundus. This is nonspecific. The appearance is benign. Intrauterine gestation cannot be completely excluded. Monitoring of beta-hCG levels and short-term imaging follow-up is recommended as clinically indicated. No other significant abnormality. ? Prescription Management I considered prescription management with: Antibiotic Keflex sent to pharmacy for UTI. Core Measures AMI core measures followed: Yes Measure exclusions: not indicated Medications Administered Discontinued Medications Generic Name Dose Route Start Last Admin Trade Name Freq PRN Reason Stop Dose Admin Acetaminophen 650 mg 05/18/23 12:17 05/18/23 12:48 Acetaminophen 325 Mg Tablet PO 05/18/23 12:18 650 mg ONCE ONE Administration Sodium Chloride 1,000 mls @ 999 mls/hr 05/18/23 10:15 05/18/23 12:40 Ns IV 05/18/23 11:15 Infused .Q1H1M DONATO Infusion Critical Care Time Critical Care Time Critical Care Time: No Discharge Plan Discharge Clinical Impression: Abdominal cramping, Nausea & vomiting, Elevated serum hCG, UTI (urinary tract infection) Patient Disposition: Home, Self-Care Instructions: Acute Nausea and Vomiting (ED), Abdominal Pain (ED) Additional Instructions: Take your medications as prescribed. If you were prescribed antibiotics today, it is important that you take your medication to their entirety, do not skip any doses, do not finish them early. Follow-up with your primary care provider this week. Return to the emergency department with new or worsening symptoms. Such as fevers, chills, chest pain, shortness of breath, nausea, vomiting, dizziness, headache, vision changes, lethargy In case of emergency call 911 Please take vitamins daily. Your beta hCG level was noted to be elevated at 32, please have a repeat hCG done in 24-48 hours. Return with any vaginal bleeding, worsening pain. US/US pelvic and transvaginal IMPRESSION: 1. Mild thickening of the endometrium with tiny 0.2 cm hypoechoic focus near the fundus. This is nonspecific. The appearance is benign. Intrauterine gestation cannot be completely excluded. Monitoring of beta-hCG levels and short-term imaging follow-up is recommended as clinically indicated. No other significant abnormality. Prescriptions: New PNV cmb#95-ferrous fumarate-FA [] 28 mg iron- 800 mcg tablet 1 tab PO DAILY Qty: 30 0RF acetaminophen [Tylenol] 325 mg capsule 325 mg PO QID PRN (Reason: pain) Qty: 30 0RF pyridoxine (vitamin B6) 25 mg tablet 25 mg PO BID Qty: 14 0RF cephalexin 500 mg tablet 500 mg PO Q6H 7 Days Qty: 28 0RF No Action benzonatate 100 mg capsule 100 mg PO BID PRN (Reason: cough) 7 Days Qty: 14 0RF Referrals: Physician,Saray J [Primary Care Provider] - 2 days Cliff Harley MD [Physician] - 1 day Stand Alone Forms: Work/School Release
[2023-05-18 10:26] LABS: MANUAL DIFF FLAG NO
[2023-05-18 10:28] LABS: Basophils Percent Auto 0.5 % (0-2); Eosinophils Absolute Auto 0.1 X10*3/uL (0.0-0.4); Eosinophils Percent Auto 1.1 % (0-4); Hematocrit 42.9 % (37.0-47.0); Hemoglobin 14.4 g/dl (12.0-16.0); Imm Gran Abs Auto 0.02 X10*3/uL (0.00-0.03); Imm Gran Pct Auto 0.3 % (0.0-0.4); Lymphocytes Absolute Auto 2.2 X10*3/uL (1.2-4.9); Lymphocytes Percent Auto 29.4 % (20-40); Mean Corpuscular HGB Conc 33.6 g/dl (31.0-35.0); Mean Corpuscular Hemoglobin 30.2 pg (27.0-33.0); Mean Corpuscular Volume 89.9 fL (80.0-98.0); Mean Platelet Volume 10.2 fL (9.4-12.3); Monocytes Absolute Auto 0.4 X10*3/uL (0.1-1.2); Monocytes Percent Auto 5.3 % (2-11); Neutrophils Absolute Auto 4.7 x10*3/uL (2.0-8.3); Neutrophils Percent Auto 63.4 % (45-73); Platelet Count 295 X10*3/uL (160-400); Red Blood Count 4.77 X10*6/uL (4.20-5.50); Red Cell Distribution Width 13.2 % (11.0-16.0); White Blood Count 7.4 X10*3/uL (4.8-10.8)
[2023-05-18 10:30] LABS: Appearance Urine Turbid; Color Urine Dark Yellow; Glucose Urine UA Negative (Negative); Leukocyte Esterase Urine Trace (Negative); Nitrite Urine Negative (Negative); Specific Gravity - Urine >= 1.030 (1.005-1.025); UMIC TRIGGER UACC YES; Urine Blood Negative (Negative); Urine Ketones Trace mg/dL (Negative); Urine Protein 30 (1+) mg/dL (Neg-Trace)
[2023-05-18 10:43] LABS: Bacteria Urine 4+ (None Seen); Other Crystals Urine Present; Squamous Epithelial Cell Urine >20 /HPF (0-2); UACC Culture Trigger YES
[2023-05-18 10:44] LABS: UPreg QC Valid YES; Urine Pregnancy WEAKLY POSITIVE (NEGATIVE)
[2023-05-18 10:57] LABS: Alanine Aminotransferase 16 U/L (0-31); Albumin Level 4.6 g/dL (3.5-5.0); Alkaline Phosphatase 61 U/L (39-117); Anion Gap 11 (12-20); Aspartate Amino Transferase 17 U/L (5-31); Bilirubin Total 0.4 mg/dL (0.0-1.0); Blood Urea Nitrogen 11 mg/dL (9-16); Calcium 9.4 mg/dL (8.4-10.2); Carbon Dioxide 25 mmol/L (22-29); Chloride 108 mmol/L (96-108); Creatinine Clr Calc Pharmacy 147.8; Estimated Glomerular Filt Rate > 60; Glucose Random 95 mg/dL (60-115); Lipase 22 U/L (8-78); Magnesium 2.5 mg/dL (1.6-2.6); Potassium 3.7 mmol/L (3.3-5.1); Sodium 140 mmol/L (135-145); Total Protein 7.8 g/dL (6.5-8.0)
[2023-05-18 11:19] VITALS: BP 118/87; PULSE 86; RESP 18; TEMP 36.8; O2SAT 98
[2023-05-18] MEDS: 0.9 % Sodium Chloride 1,000 ML 999 ML IV (11:23)
[2023-05-18 11:44] LABS: HCG Quantitative 32 mIU/mL
[2023-05-18] MEDS: Acetaminophen 325 MG TABLET 650 MG PO (12:48)
== END 2023-05-18 13:06 | disposition home or self-care (01) ==
PROVIDERS: Physician Assistant; Emergency Provider Emergency Medicine
DX: N39.0 Urinary tract infection, site not specified (principal); R10.2 Pelvic and perineal pain; R11.2 Nausea with vomiting, unspecified; R79.89 Other specified abnormal findings of blood chemistry; Z79.899 Other long term (current) drug therapy
CPT/HCPCS: 36415; 76830; 76856; 80053; 81001; 81025; 83690; 83735; 84702; 85025; 87086; 93975; 96360; 99284

== ENCOUNTER 2023-05-21 07:36 | Emergency (ER) | payer BC, SELFPAY ==
[2023-05-21 07:43] VITALS: BP 126/78; PULSE 76; RESP 18; TEMP 36.8; O2SAT 99; BMI 36.2
--- NOTE | 2023-05-21 07:52 | PC.NURSE ---
Patient reports beeing seen here in er 3-4 ays ago and was told she was 4 weeks . Patient states her hcg here was 32 and when she went to follow up with her obgyn her levels dropped to 21 and was told to expect a misscarriage. Patient states that she is having a large amount of bleeding that started yesterday around 3pm and has been constant since. Reports small clots, and cramping with 8/10 pain.
--- NOTE | 2023-05-21 07:54 | ED_ITS ---
HPI - General Chief complaint: Vaginal Bleeding Stated complaint: heavy cramping/bleeding, Time Seen by Provider: 05/21/23 07:41 Source: patient Mode of arrival: ambulatory Limitations: no limitations History of Present Illness HPI Narrative: 22 yo female with PMHx significant for PCOS presenting with increased abdominal pain/ cramping and vaginal bleeding x24 hours. She recently had a +serum p regnancy test w/ bHCG of 32 and US showing 4 week at our facility. She was seen at her OBGYN yesterday with a decreasing bHCG of 21 and was told to expect a miscarriage. She presents today for worsening abdominal cramping and large amount of vaginal bleeding with small clots beginning at 1500 yesterday. Her pain is currently 8/10. Denies fever, chills, N/V, CP/SOB. MD Complaint: abdominal pain and vaginal bleeding Onset (ago): day(s) Pain Consistency: intermittent Location: pelvis Severity: severe Severity scale (1-10): 8 Quality: Cramping and Stabbing Relieving factors: none Exacerbating factors: none Associated symptoms: nausea Vaginal discharge: none Vaginal bleeding: clots Date of Last Menstrual Period: 04/17/23 Patient : Yes Related Data : 1 Para: 0 Previous Rx's Medication Instructions Recorded benzonatate 100 mg capsule 100 mg PO BID PRN cough 7 days #14 04/22/23 caps acetaminophen 325 mg capsule 325 mg PO QID PRN pain #30 caps 05/18/23 (Tylenol) cephalexin 500 mg tablet 500 mg PO Q6H 7 days #28 tabs 05/18/23 vit no.95-ferrous 1 tab PO DAILY #30 tabs 05/18/23 fumarate 28 mg-folic acid 800 mcg tablet () pyridoxine (vitamin B6) 25 mg 25 mg PO BID nausea #14 tabs 05/18/23 tablet ibuprofen 600 mg tablet 600 mg PO TID PRN pain #20 tabs 05/21/23 oxycodone 5 mg tablet 5 mg PO Q8H PRN severe pain (scale 05/21/23 score 7-10) #5 tabs Allergies Allergy/AdvReac Type Severity Reaction Status Date / Time No Known Allergies Allergy Verified 05/18/23 08:48 Review of Systems Review of Systems: Yes all other systems are reviewed and are negative PMFSH Past Medical History Attestation statement: The following information was validated with the patient. Source: old records reviewed and nursing notes reviewed : 1 Para: 0 Date of Last Menstrual Period: 04/17/23 Social History Social History Alcohol intake: former Smoked in Last 30 Days: Yes Use of substances other than those prescribed or required for medical reasons: Yes Substance Use Type: Marijuana Advance Directives: No Physical Exam Vital Signs: Vital Signs: Last Vital Signs Temp 98.3 F 05/21/23 07:55 Pulse 76 05/21/23 07:55 Resp 18 05/21/23 07:55 BP 126/78 05/21/23 07:55 Pulse Ox 99 05/21/23 07:43 O2 Del Method Room Air 05/21/23 07:55 BMI result Body Mass Index 36.2 Appearance: Alert. Oriented X3. No acute distress. Head: normocephalic, atraumatic. Eyes: Pupils equal, round and reactive to light. ENT: Pharynx normal. No tonsillar swelling or exudate. Neck: Normal inspection. Neck supple. CVS: Normal heart rate and rhythm. Pulses normal. Respiratory: No respiratory distress. Breath sounds normal. Abdomen: Soft and nontender. +BS x4. pelvic deferred Skin: Skin warm and dry. Normal skin color. Normal skin turgor. No rashes. Extremities: No lower extremity edema. No joint swelling. Neuro/psych: Oriented X 3. No motor deficit. No sensory deficit. CN II-XII intact. Normal speech and cognition. Medications Administered Discontinued Medications Generic Name Dose Route Start Last Admin Trade Name Yunielq PRN Reason Stop Dose Admin Ketorolac Tromethamine 30 mg 05/21/23 08:27 05/21/23 08:38 Ketorolac Tromethamine 30 Mg/Ml Vial IM 05/21/23 08:28 30 mg ONCE ONE Administration Oxycodone HCl 5 mg 05/21/23 08:27 05/21/23 08:56 Oxycodone Hcl Immed Release 5 Mg Tablet PO 05/21/23 08:28 Not Given ONCE ONE Medical Decision Making Medical Decision Making MDM Narrative: 22 yo female currently in early stage of with PMHx significant for PCOS presenting with increased abdominal pain/ cramping and vaginal bleeding x24 hours. Found to be having a miscarriage w/ outpatieng HCG trending down and onging bleeding. Vital signs are stable. Patient is nontoxic appearing, in NAD. Plan: labs, repeat bHCG, UA, pain control H/H stable. HCG 15. normal progression for spontaneous . pain improved w/ toradol. stable for d/c home with e learning coordinator follow up next week and pain control. return precautions discussed Differential Diagnosis Differential Diagnoses: The differential diagnosis associated with the presentation includes spontaneous , IUP, anemia, missed , retained POC Lab Data MDM Lab Attestation statement: I reviewed the patient's lab results. stable H/H 05/21/23 08:33 05/21/23 08:33 Labs: Lab Results 05/21/23 05/21/23 Range/Units 08:33 08:33 WBC 7.1 (4.8-10.8) X10*3/uL RBC 4.77 (4.20-5.50) X10*6/uL Hgb 14.2 (12.0-16.0) g/dl Hct 42.9 (37.0-47.0) % MCV 89.9 (80.0-98.0) fL MCH 29.8 (27.0-33.0) pg MCHC 33.1 (31.0-35.0) g/dl RDW 13.3 (11.0-16.0) % Plt Count 285 (160-400) X10*3/uL MPV 10.2 (9.4-12.3) fL Immature Gran % (Auto) 0.1 (0.0-0.4) % Neut % (Auto) 64.5 (45-73) % Lymph % (Auto) 27.8 (20-40) % [place] % (Auto) 5.9 (2-11) % Eos % (Auto) 1.1 (0-4) % Baso % (Auto) 0.6 (0-2) % Lymph # (Auto) 2.0 (1.2-4.9) X10*3/uL [place] # (Auto) 0.4 (0.1-1.2) X10*3/uL Eos # (Auto) 0.1 (0.0-0.4) X10*3/uL Baso # (Auto) 0.0 (0.0-0.2) X10*3/uL Abs Immat Gran (auto) 0.01 (0.00-0.03) X10*3/uL Absolute Neuts (auto) 4.6 (2.0-8.3) x10*3/uL Absolute Nucleated RBC 0.000 (0.0-0.012) X10*3/uL Nucleated RBC % (auto) 0.0 (0.0-0.2) /100WBC Sodium 141 (135-145) mmol/L Potassium 3.7 (3.3-5.1) mmol/L Chloride 110 H (96-108) mmol/L Carbon Dioxide 25 (22-29) mmol/L Anion Gap 10 L (12-20) BUN 15 (9-16) mg/dL Creatinine 0.75 (0.5-1.4) mg/dL Estim Creat Clear Calc 146.5 Estimated GFR > 60 Random Glucose 98 (60-115) mg/dL Calcium 9.0 (8.4-10.2) mg/dL Magnesium 2.3 (1.6-2.6) mg/dL Total Bilirubin 0.4 (0.0-1.0) mg/dL Direct Bilirubin 0.2 (0.0-0.5) mg/dL AST 13 (5-31) U/L ALT 11 (0-31) U/L Alkaline Phosphatase 53 (39-117) U/L Total Protein 7.3 (6.5-8.0) g/dL Albumin 4.3 (3.5-5.0) g/dL Beta HCG, Quant 15 mIU/mL External Record Review External record reviewed: Inpatient record, Prior outpatient labs and Prior outpatient radiology Tests considered The following testing was considered but not selected: considered repeat U/S however with HCG so low there would no utility Prescription Management I considered prescription management with: Pain Medication Critical Care Time Critical Care Time Critical Care Time: No Discharge Plan Discharge Clinical Impression: Spontaneous Patient Disposition: Home, Self-Care Instructions: Miscarriage (ED) Additional Instructions: Your blood counts today were stable. Your hormone went down to 15. Recommend following up with your OBGYN next week to ensure that it goes to 0. Recommend taking Tylenol 975 mg every 6 hours. Alternate this with ibuprofen as prescribed. Take the ibuprofen with food. Take the prescribed narcotic medication as needed for severe pain only. Do not drive after taking this medication. If you develop new or worsening symptoms call 911 or come back to the ER for further evaluation. Prescriptions: New ibuprofen 600 mg tablet 600 mg PO TID PRN (Reason: pain) Qty: 20 0RF oxycodone 5 mg tablet 5 mg PO Q8H PRN (Reason: severe pain (scale score 7-10)) Qty: 5 0RF Rx Instructions: Partial Fill upon patient request. No Action benzonatate 100 mg capsule 100 mg PO BID PRN (Reason: cough) 7 Days Qty: 14 0RF PNV cmb#95-ferrous fumarate-FA [] 28 mg iron- 800 mcg tablet 1 tab PO DAILY Qty: 30 0RF acetaminophen [Tylenol] 325 mg capsule 325 mg PO QID PRN (Reason: pain) Qty: 30 0RF pyridoxine (vitamin B6) 25 mg tablet 25 mg PO BID Qty: 14 0RF cephalexin 500 mg tablet 500 mg PO Q6H 7 Days Qty: 28 0RF
[2023-05-21 07:55] VITALS: BP 126/78; PULSE 76; RESP 18; TEMP 36.8
[2023-05-21 08:37] LABS: MANUAL DIFF FLAG NO
[2023-05-21] MEDS: Ketorolac Tromethamine 30 MG/ML VIAL IM (08:38)
[2023-05-21 08:39] LABS: Basophils Percent Auto 0.6 % (0-2); Eosinophils Absolute Auto 0.1 X10*3/uL (0.0-0.4); Eosinophils Percent Auto 1.1 % (0-4); Hematocrit 42.9 % (37.0-47.0); Hemoglobin 14.2 g/dl (12.0-16.0); Imm Gran Abs Auto 0.01 X10*3/uL (0.00-0.03); Imm Gran Pct Auto 0.1 % (0.0-0.4); Lymphocytes Percent Auto 27.8 % (20-40); Mean Corpuscular HGB Conc 33.1 g/dl (31.0-35.0); Mean Corpuscular Hemoglobin 29.8 pg (27.0-33.0); Mean Corpuscular Volume 89.9 fL (80.0-98.0); Mean Platelet Volume 10.2 fL (9.4-12.3); Monocytes Absolute Auto 0.4 X10*3/uL (0.1-1.2); Monocytes Percent Auto 5.9 % (2-11); Neutrophils Absolute Auto 4.6 x10*3/uL (2.0-8.3); Neutrophils Percent Auto 64.5 % (45-73); Platelet Count 285 X10*3/uL (160-400); Red Blood Count 4.77 X10*6/uL (4.20-5.50); Red Cell Distribution Width 13.3 % (11.0-16.0); White Blood Count 7.1 X10*3/uL (4.8-10.8)
[2023-05-21 08:59] LABS: Alanine Aminotransferase 11 U/L (0-31); Albumin Level 4.3 g/dL (3.5-5.0); Alkaline Phosphatase 53 U/L (39-117); Anion Gap 10 (12-20); Aspartate Amino Transferase 13 U/L (5-31); Bilirubin Direct 0.2 mg/dL (0.0-0.5); Bilirubin Total 0.4 mg/dL (0.0-1.0); Blood Urea Nitrogen 15 mg/dL (9-16); Carbon Dioxide 25 mmol/L (22-29); Chloride 110 mmol/L (96-108); Creatinine Clr Calc Pharmacy 146.5; Estimated Glomerular Filt Rate > 60; Glucose Random 98 mg/dL (60-115); HCG Quantitative 15 mIU/mL; Magnesium 2.3 mg/dL (1.6-2.6); Potassium 3.7 mmol/L (3.3-5.1); Sodium 141 mmol/L (135-145); Total Protein 7.3 g/dL (6.5-8.0)
--- NOTE | 2023-05-21 09:01 | PC.NURSE ---
Patient declined oxycodone stating it makes her sick, provider aware
--- NOTE | 2023-05-21 09:38 | PC.NURSE ---
Discharge plan reviewed with patient who verbalized understanding
--- NOTE | 2023-05-21 18:54 | PC.NURSE ---
This RN witnessed waste of Oxycodone 5mg by Gayatri SINGH
--- NOTE | 2023-05-21 19:00 | PC.NURSE ---
wasted 5mg of oxycodone declined by patient in presence of Tawana Renee
== END 2023-05-21 09:38 | disposition home or self-care (01) ==
PROVIDERS: Physician Assistant; Emergency Provider Student in an Organized Health Care Education/Training Program
DX: O03.9 Complete or unspecified spontaneous abortion without complication (principal); Z3A.01 Less than 8 weeks gestation of pregnancy
CPT/HCPCS: 36415; 80048; 80076; 83735; 84702; 85025; 96372; 99284; J1885

== ENCOUNTER 2023-09-07 01:17 | Emergency (ER) | payer MEDICAID, SELFPAY ==
[2023-09-07] VITALS (7 sets, daily range): BP systolic 106–119; BP diastolic 50–67; PULSE 78–87; RESP 16–18; TEMP 37.1–37.4; O2SAT 97–98; BMI 36.0
[2023-09-07 01:52] LABS: MANUAL DIFF FLAG NO
[2023-09-07 01:57] LABS: Basophils Percent Auto 0.2 % (0-2); Eosinophils Percent Auto 0.2 % (0-4); Imm Gran Abs Auto 0.02 X10*3/uL (0.00-0.03); Imm Gran Pct Auto 0.5 % (0.0-0.4); Lymphocytes Absolute Auto 0.6 X10*3/uL (1.2-4.9); Lymphocytes Percent Auto 15.2 % (20-40); Mean Corpuscular HGB Conc 32.4 g/dl (31.0-35.0); Mean Corpuscular Hemoglobin 29.9 pg (27.0-33.0); Mean Platelet Volume 10.1 fL (9.4-12.3); Monocytes Absolute Auto 0.5 X10*3/uL (0.1-1.2); Monocytes Percent Auto 11.4 % (2-11); Neutrophils Absolute Auto 2.9 x10*3/uL (2.0-8.3); Neutrophils Percent Auto 72.5 % (45-73); Platelet Count 220 X10*3/uL (160-400); Red Blood Count 4.02 X10*6/uL (4.20-5.50); Red Cell Distribution Width 13.2 % (11.0-16.0)
[2023-09-07 02:05] LABS: Anion Gap 12 (12-20); Blood Urea Nitrogen 11 mg/dL (9-16); Calcium 8.8 mg/dL (8.4-10.2); Carbon Dioxide 23 mmol/L (22-29); Chloride 108 mmol/L (96-108); Creatinine Clr Calc Pharmacy 135.3; Estimated Glomerular Filt Rate > 60; Glucose Random 102 mg/dL (60-115); Potassium 3.8 mmol/L (3.3-5.1); Sodium 139 mmol/L (135-145)
--- NOTE | 2023-09-07 07:00 | PC.NURSE ---
Assumed care of pt at this time.
[2023-09-07] MEDS: Ondansetron ODT 4 MG TAB.RAPDIS TRANSLINGU (08:30)
--- NOTE | 2023-09-07 08:40 | ED_ITS ---
HPI - URI/Sore Throat General Chief Complaint: Upper Respiratory Symptoms Stated Complaint: COVID +, unable to eat/drink Time Seen by Provider: 09/07/23 07:54 Source: patient Mode of arrival: ambulatory History of Present Illness HPI Narrative: 22-year-old female who presents as a walk-in with known COVID symptoms for 3 days, diagnosed by Kathy yesterday (as per patient), it patient has a prescription for Zofran but states that she has had increased shortness of breath with nausea or vomiting. Related Data Previous Rx's Medication Instructions Recorded benzonatate 100 mg capsule 100 mg PO BID PRN cough 7 days #14 04/22/23 caps acetaminophen 325 mg capsule 325 mg PO QID PRN pain #30 caps 05/18/23 (Tylenol) cephalexin 500 mg tablet 500 mg PO Q6H 7 days #28 tabs 05/18/23 vit no.95-ferrous 1 tab PO DAILY #30 tabs 05/18/23 fumarate 28 mg-folic acid 800 mcg tablet () pyridoxine (vitamin B6) 25 mg 25 mg PO BID nausea #14 tabs 05/18/23 tablet ibuprofen 600 mg tablet 600 mg PO TID PRN pain #20 tabs 05/21/23 oxycodone 5 mg tablet 5 mg PO Q8H PRN severe pain (scale 05/21/23 score 7-10) #5 tabs Allergies Allergy/AdvReac Type Severity Reaction Status Date / Time No Known Allergies Allergy Verified 09/07/23 01:33 Review of Systems 2 Review of Systems: Pertinent positives and negatives as stated in HPI PMFSH Past Medical History Source: nursing notes reviewed Social History Social History Alcohol intake: former Substance Use Type: Marijuana Advance Directives: No Advance Directives Information Provided: No Physical Exam 2 Vital Signs: Vital Signs: Last Vital Signs Temp 98.7 F 09/07/23 04:34 Pulse 78 09/07/23 08:30 Resp 18 09/07/23 08:30 BP 112/62 09/07/23 08:30 Pulse Ox 98 09/07/23 08:30 O2 Del Method Room Air 09/07/23 08:30 BMI result Body Mass Index 36.0 VITAL SIGNS: Reviewed. GENERAL: Well developed, well nourished, in no acute distress, appears well. HEAD: Normocephalic/atraumatic EYES: PERRLA, EOMI EARS: Ext canals without abnormality NOSE: Nares patent bilateral OROPHARYNX: no oral lesions noted, posterior pharynx clear NECK: Supple, no adenopathy LUNGS: Normal breath sounds, easy breathing without tachypnea, no wheezing/rhonchi/rales. SpO2<98> CARDIOVASCULAR: Regular rate and rhythm without noted murmurs ABDOMEN: Soft, non-tender, non-distended with bowel sounds. MUSCULOSKELETAL: No tenderness, deformities, or effusions noted on gross inspection. EXTREMITIES: No cyanosis, clubbing or edema. SKIN: Inspection of the skin reveals no rashes NEUROLOGIC: Alert and oriented x 4. Strength and sensation to light touch were grossly intact x 4. Medications Administered Discontinued Medications Generic Name Dose Route Start Last Admin Trade Name Freq PRN Reason Stop Dose Admin Ondansetron HCl 4 mg 09/07/23 08:02 09/07/23 08:30 Ondansetron Odt 4 Mg Tab.Rapdis TRANSLINGU 09/07/23 08:03 4 mg ONCE ONE Administration Medical Decision Making Medical Decision Making [facility] Narrative: 22-year-old female with history and clinical presentation of known viral illness with COVID-19, presents to the hospital with a prescription of Zofran but has not taken at and has concerns regarding nausea and vomiting for which she was discharged Zofran from [facility] but due to insurance miscommunication was unable to fill the prescription. Patient will be provided with Tylenol as/ibuprofen/Zofran and given a p.o. challenge. I reviewed all investigations and hematologic indices are without leukocytosis or left shift and there is no anemia or thrombocytopenia. Hematologic indices are reflective of current underlying viral infection. Chemistry hand is see he has are grossly within normal limits and there is no demonstrated EMMANUEL her electrolytes derangements. 0920: On re-evaluation patient is improved and tolerating oral intake and will be discharged. Differential Diagnosis Differential Diagnoses: The differential diagnosis associated with the presentation includes Please see the discussion above Admission/Observation Consideration of admission/observation: Escalation of care including admission/observation considered Please see the discussion above Lab Data [facility] Lab Attestation statement: I reviewed the patient's lab results. Please see the discussion above 09/07/23 01:47 09/07/23 01:47 Labs: Lab Results 09/07/23 Range/Units 01:47 WBC 4.0 L (4.8-10.8) X10*3/uL RBC 4.02 L (4.20-5.50) X10*6/uL Hgb 12.0 (12.0-16.0) g/dl Hct 37.0 (37.0-47.0) % MCV 92.0 (80.0-98.0) fL MCH 29.9 (27.0-33.0) pg MCHC 32.4 (31.0-35.0) g/dl RDW 13.2 (11.0-16.0) % Plt Count 220 (160-400) X10*3/uL MPV 10.1 (9.4-12.3) fL Immature Gran % (Auto) 0.5 H (0.0-0.4) % Neut % (Auto) 72.5 (45-73) % Lymph % (Auto) 15.2 L (20-40) % [place] % (Auto) 11.4 H (2-11) % Eos % (Auto) 0.2 (0-4) % Baso % (Auto) 0.2 (0-2) % Lymph # (Auto) 0.6 L (1.2-4.9) X10*3/uL [place] # (Auto) 0.5 (0.1-1.2) X10*3/uL Eos # (Auto) 0.0 (0.0-0.4) X10*3/uL Baso # (Auto) 0.0 (0.0-0.2) X10*3/uL Abs Immat Gran (auto) 0.02 (0.00-0.03) X10*3/uL Absolute Neuts (auto) 2.9 (2.0-8.3) x10*3/uL Absolute Nucleated RBC 0.000 (0.0-0.012) X10*3/uL Nucleated RBC % (auto) 0.0 (0.0-0.2) /100WBC Sodium 139 (135-145) mmol/L Potassium 3.8 (3.3-5.1) mmol/L Chloride 108 (96-108) mmol/L Carbon Dioxide 23 (22-29) mmol/L Anion Gap 12 (12-20) BUN 11 (9-16) mg/dL Creatinine 0.81 (0.5-1.4) mg/dL Estim Creat Clear Calc 135.3 Estimated GFR > 60 Random Glucose 102 (60-115) mg/dL Calcium 8.8 (8.4-10.2) mg/dL Discharge Plan Discharge Clinical Impression: Viral syndrome, Lab test positive for detection of COVID-19 virus Patient Disposition: Home, Self-Care Instructions: Viral Syndrome (ED), COVID-19 (Coronavirus Disease 2019) (ED) Additional Instructions: 1. Resume all home medications as prescribed. 2. Continue with the Zofran for the next 24-48 hours. Continue to isolate as instructed by CDC. Return to the ER for worsening symptoms. But otherwise follow-up with your primary care doctor via telehealth appointment. Prescriptions: No Action benzonatate 100 mg capsule 100 mg PO BID PRN (Reason: cough) 7 Days Qty: 14 0RF PNV cmb#95-ferrous fumarate-FA [] 28 mg iron- 800 mcg tablet 1 tab PO DAILY Qty: 30 0RF acetaminophen [Tylenol] 325 mg capsule 325 mg PO QID PRN (Reason: pain) Qty: 30 0RF pyridoxine (vitamin B6) 25 mg tablet 25 mg PO BID Qty: 14 0RF cephalexin 500 mg tablet 500 mg PO Q6H 7 Days Qty: 28 0RF ibuprofen 600 mg tablet 600 mg PO TID PRN (Reason: pain) Qty: 20 0RF oxycodone 5 mg tablet 5 mg PO Q8H PRN (Reason: severe pain (scale score 7-10)) Qty: 5 0RF Rx Instructions: Partial Fill upon patient request.
--- NOTE | 2023-09-07 08:47 | PC.NURSE ---
Per provider- initiate PO challenge; if fluids tolerable, pt will be up for discharge.
== END 2023-09-07 09:37 | disposition home or self-care (01) ==
PROVIDERS: Emergency Provider Student in an Organized Health Care Education/Training Program
DX: U07.1 COVID-19 (principal); R11.2 Nausea with vomiting, unspecified; R06.02 Shortness of breath
CPT/HCPCS: 36415; 80048; 85025; 99283; 99285